=== PATIENT | female | born 1930 | race Caucasian/White ===

== ENCOUNTER 2017-04-14 20:44 | Inpatient (IN) ==
[2017-04-14] MEDS ORDERED: Ondansetron 4 MG/2 ML VIAL IVP ONE (21:32)
[2017-04-14] MEDS ORDERED: 0.9 % Sodium Chloride 500 ML IVC ONE (21:32)
--- NOTE | 2017-04-14 21:48 | Emergency Department Note ---
START Narrative - START START: I examined this patient and my medical decision-making was reviewed with the INSTRUCTOR PILOT/PA/Advanced Practice Nurse/Resident Physician. I agree with the documented findings, disposition and treatment plan as described except to the extent set forth below. ED attending note: Patient seen with emergency medicine resident Dr PICKETT. We independently evaluated the patient. We independently had [id number] contact with the patient. Please see a copy of his note for details of the history and physical, evaluation, management and disposition of this emergency Department patient. Briefly: 86-year-old female brought in by family members for abdominal distention no bowel movement for 4 days and "constipation". Patient and her family stated that the worked up yesterday and [facility] in [place] a while had a CAT scan and blood work had a rectal examination and an enema but she states she left there is still with pain and symptoms. She is here for further evaluation. Patient has slightly distended abdomen that is firm with bowel sounds. We got a release for her signed and located at the information from yesterday's ED workup. Patient is getting IV fluids and rehydration with saline singeing last ate she started 4 days ago. Digital rectal examination showed firm stool in the ampulla. We will commence rectal manual digital disimpaction. Disposition pending.
[2017-04-14 22:07] LABS: Basophils % 0.1 %; Eosinophils % 0.4 %; Hematocrit 37.6 % (35.3-44.9); Hemoglobin 12.7 g/dL (11.5-15.4); Immature Granulocytes % 0.3 % (0-4); Lymphocytes # 0.7 K/mcL (0.6-4.6); Lymphocytes % 9.2 %; Mean Corpuscular HGB Conc 33.8 g/dL (31.6-35.5); Mean Corpuscular Hemoglobin 29.4 pg (28.0-33.3); Mean Platelet Volume 10.2 fL (9.4-12.4); Monocytes # 0.7 K/mcL (0.0-1.3); Monocytes % 8.3 %; Neutrophils # 6.5 K/mcL (1.6-8.9); Platelet Count 198 K/mcL (140-400); Red Blood Count 4.32 M/mcL (3.82-4.97); Red Cell Distribution Width 13.2 % (11.5-14.5); Segmented Neutrophils % 81.7 %
[2017-04-14 22:20] LABS: BUN/Creatinine Ratio 11 (6-26); Blood Urea Nitrogen 8 mg/dL (7-20); Calcium 8.9 mg/dL (8.6-10.8); Carbon Dioxide 24 mEq/L (19-29); Chloride 97 mEq/L (98-109); Glucose 122 mg/dL (70-99); Osmolality,Calculated 272 (280-300); Potassium 3.2 mEq/L (3.5-4.5); Sodium 131 mEq/L (136-145); eGFR For African Americans > 60 (> 60); eGFR For Non-African Americans > 60 (> 60)
[2017-04-14] MEDS ORDERED: Milk and Molasses Enema 200 ML RC ONE (22:21)
[2017-04-14] MEDS ORDERED: Potassium Chloride Elixir 20 MEQ/15 ML UDC PO ONE (22:30)
--- NOTE | 2017-04-14 22:41 | Emergency Department Note ---
Disposition Clinical Impression: Ileus, Hyponatremia, Hypokalemia Constipation Qualifiers: Constipation type: unspecified constipation type Qualified Code(s): K59.00 - Constipation, unspecified Disposition: Admitted As Inpatient Condition: Fair Referrals: Johny Morrison DO [Primary Care Provider] - Forms: Work/School Release, ED Satisfaction Letter Time of Disposition: 22:51 Abdominal Pain HPI - General Chief Complaint: ED Abdominal Pain Stated Complaint: constipation, both hips and flank pn can't urinat Time Seen by Provider: 04/14/17 21:06 Source: patient Mode of arrival: ambulatory Limitations: no limitations Nursing Notes Reviewed: Yes Vital Signs Reviewed: Yes - History of Present Illness HPI Narrative: Patient 86-year-old female with past medical history of hypertension. She presents today due to constipation for the past 4 days. She was seen at [facility] yesterday and had (per patient) a CT scan that showed constipation and patient states that she was sent home with MiraLAX. She also said that she had an enema but did not work. She presents today due to continued constipation. She says that she had a digital rectal exam but did not have a digital disimpaction. Denies any nausea or vomiting, fevers, chest pain, shortness of breath. She does admit to generalized abdominal pain, mainly suprapubic. She also says that she has not urinated since 10 AM. She also admits to burning with urination. Pain Scale: 10 - Related Data Home Medications Medication Instructions Recorded Confirmed Cholecalciferol (Vitamin D3) 4,000 unit PO DAILY 02/01/16 02/01/16 [Vitamin D3] Diclofenac Potassium 50 mg PO TID 02/01/16 02/01/16 Etodolac 500 mg PO BID 02/01/16 02/01/16 Levothyroxine [Synthroid] 50 mcg PO DAILY 02/01/16 02/01/16 Lisinopril 30 mg PO DAILY 02/01/16 02/01/16 hydroCHLOROthiazide 50 mg PO DAILY 02/01/16 02/01/16 [Hydrochlorothiazide] Previous Rx's Medication Instructions Recorded cloNIDine HCl [CloNIDine HCl] 0.1 mg PO DAILY #30 tablet 02/01/16 Allergies Allergy/AdvReac Type Severity Reaction Status Date / Time No Known Allergies Allergy Verified 04/14/17 21:04 All systems ED: reviewed and negative except as stated. Constitutional: Denies: fever Cardiovascular: Denies: chest pain Respiratory: Denies: dyspnea Gastrointestinal: Reports: abdominal pain, constipation. Denies: nausea, vomiting, diarrhea Abdominal Pain PMH - Past Medical History Medical history: Reports: hypertension Female Surgical History: Reports: no surgical history Psychiatric history: Reports: no psych history - Social History Smoking status: Never smoker Alcohol use: Reports: none Drug use: Reports: none Physical Exam - General Limitations: no limitations General appearance: alert, in no apparent distress - Eye Eye exam: Present: normal appearance, PERRL, EOMI - ENT ENT exam: normal exam, normal oropharynx, mucous membranes moist - Neck Neck exam: Present: normal inspection, full ROM, trachea midline - Chest Chest inspection: Present: normal inspection, symmetric chest wall rise - Respiratory Respiratory exam: Present: normal lung sounds bilaterally - Cardiovascular Cardiovascular exam: Present: regular rate, normal rhythm, normal heart sounds - Abdominal Exam Abdominal exam: Present: soft, tenderness (mild tenderness in suprapubic region) . Absent: distention, guarding, rebound, rigidity - Rectal Exam Rectal exam: Present: other (No stool appreciated in rectal vault). Absent: bloody stool, mass - Extremities Exam Extremities exam: Present: normal inspection, full ROM. Absent: tenderness, pedal edema - Neurological Exam Neurological exam: Present: alert, oriented X3 - Psychiatric Psychiatric exam: Present: normal affect, normal mood Course Course Narrative: Patient was hypertensive on presentation. We will recheck. The rest of the vitals within normal limits. Physical exam showed mild suprapubic tenderness. Otherwise, the rest of the physical exam was benign. Rectal exam showed no stool in the rectal vault. X-ray of the abdomen showed mild ileus bowel gas pattern. Basic labs also showed mild hyponatremia and mild hypokalemia. Will replace potassium with 40 mEq of potassium, will start fluids for hyponatremia. Urinalysis has been ordered the patient has been unable to give urine sample at this time. Plan is to check for UTI due to complaint of burning with urination. Hospitalist was called due to fear of developing obstruction seen on x-ray. She will be admitted for further observation at least overnight. Patient was agreeable with this plan. KUB X-Ray 04/14/17 21:31 IMPRESSION: Mild ileus bowel gas pattern. D/ / Vince Taylor MD / Vince Taylor MD Interpreting Provider: Vince Taylor MD Vital Signs Temperature 98.3 F 04/14/17 21:02 Pulse Rate 79 04/14/17 21:02 Respiratory Rate 16 04/14/17 21:02 Blood Pressure 207/101 04/14/17 21:02 O2 Sat by Pulse Oximetry 96 04/14/17 21:02 Temperature 98.3 F 04/14/17 21:02 Pulse Rate 79 04/14/17 21:02 Respiratory Rate 16 04/14/17 21:02 Blood Pressure 207/101 04/14/17 21:02 O2 Sat by Pulse Oximetry 96 04/14/17 21:02 Oxygen Delivery Oxygen Delivery Room Air Abdominal Pain - MDM Narrative Medical decision making narrative: Patient was hypertensive on presentation. We will recheck. The rest of the vitals within normal limits. Physical exam showed mild suprapubic tenderness. Otherwise, the rest of the physical exam was benign. Rectal exam showed no stool in the rectal vault. X-ray of the abdomen showed mild ileus bowel gas pattern. Basic labs also showed mild hyponatremia and mild hypokalemia. Will replace potassium with 40 mEq of potassium, will start fluids for hyponatremia. Urinalysis has been ordered the patient has been unable to give urine sample at this time. Plan is to check for UTI due to complaint of burning with urination. Hospitalist was called due to fear of developing obstruction seen on x-ray. She will be admitted for further observation at least overnight. Patient was agreeable with this plan. - Medical Records Medical records reviewed: Yes I reviewed the patient's medical records. - Lab Data Lab results reviewed: Yes I reviewed the patient's lab results. Result diagrams: 04/14/17 21:59 04/14/17 21:59 Lab Results 04/14/17 04/14/17 Range/Units 21:59 21:59 WBC 7.9 (4.3-11.1) K/mcL RBC 4.32 (3.82-4.97) M/mcL Hgb 12.7 (11.5-15.4) g/dL Hct 37.6 (35.3-44.9) % MCV 87.0 (83.0-100.0) fL MCH 29.4 (28.0-33.3) pg MCHC 33.8 (31.6-35.5) g/dL RDW 13.2 (11.5-14.5) % Plt Count 198 (140-400) K/mcL MPV 10.2 (9.4-12.4) fL Immature Gran % 0.3 (0-4) % Seg Neutrophils % 81.7 % Lymphocytes % 9.2 % Monocytes % 8.3 % Eosinophils % 0.4 % Basophils % 0.1 % Neutrophils # 6.5 (1.6-8.9) K/mcL Lymphocytes # 0.7 (0.6-4.6) K/mcL Monocytes # 0.7 (0.0-1.3) K/mcL Eosinophils # 0.0 (0.0-0.6) K/mcL Basophils # 0.0 (0.0-0.2) K/mcL Sodium 131 L (136-145) mEq/L Potassium 3.2 L (3.5-4.5) mEq/L Chloride 97 L (98-109) mEq/L Carbon Dioxide 24 (19-29) mEq/L BUN 8 (7-20) mg/dL Creatinine 0.73 (0.57-1.11) mg/dL Est GFR ( Amer) > 60 (> 60) Est GFR (Non-Af Amer) > 60 (> 60) BUN/Creatinine Ratio 11 (6-26) Glucose 122 H (70-99) mg/dL Calculated Osmolality 272 L (280-300) Calcium 8.9 (8.6-10.8) mg/dL - Radiology Data Radiology results reviewed: Yes I reviewed the patient's radiology results. KUB X-Ray 04/14/17 21:31 IMPRESSION: Mild ileus bowel gas pattern. D/ / Vince Taylor MD / Vince Taylor MD Interpreting Provider: Vince Taylor MD S.B.A.R. - S.B.A.R. Situation: Demographics, MOA Background: Presenting Complaint, Relevant PMH, Meds, & Allergies Assessment: Vital Signs, Course and respsone to treatment, Exam Concerns, Patient/Family Expectation, Pertinant Lab Results, Outstanding Labs Recommendation: Barrier(s) to disposition, Recommendation based on pending studies, treatments, or consults S.[email or web address] [email or web address] Report Given to: Dr. Omi Monae Repor Time: 22:50
[2017-04-14] MEDS ORDERED: Acetaminophen 325 MG TABLET PO PRN (23:05)
[2017-04-14] MEDS ORDERED: Naloxone 0.4 MG/ML INJ IVP PRN (23:05)
[2017-04-14] MEDS ORDERED: 0.9 % Sodium Chloride w KCl 20 MEQ/1,000 ML MLS IVC SCH (23:15)
[2017-04-14 23:16] LABS: Bilirubin,Urine Negative (Negative); Blood,Urine Negative (Negative); Color,Urine Yellow (Yellow); Glucose,Urine (UA) Normal (Normal); Ketones,Urine Trace mg/dL (Negative); Leukocyte Esterase,Urine Moderate (Negative); Nitrite,Urine Negative (Negative); Protein,Urine Negative (Neg-Trace); Specific Gravity,Urine 1.014 (1.010-1.025); Urobilinogen,Urine Normal (Normal)
--- NOTE | 2017-04-14 23:16 | Internal Med History&Physical ---
Date of Encounter: 04/14/17 Time of Encounter: 23:11 Assessment and Plan (1) Ileus Current visit: Yes Status: Acute NPO for now overnight. Repeat AXR in the morning. Trial of senna BID. Correct hyponatremia, hypoKalemia. IVF as below for now. If improve in a.m consider progression of diet (2) Constipation Current visit: Yes Status: Acute monitor for now. AXR in the a.m. Likely 2/2 to above Qualifiers: Constipation type: unspecified constipation type Qualified Code(s): K59.00 - Constipation, unspecified (3) Hyponatremia Current visit: Yes Status: Acute IVF 0.9 NS, monitor NA (4) Hypokalemia Current visit: Yes Status: Acute IVF with K supplementation. Monitor K (5) Hypertension Current visit: Yes Status: Acute continue home med Qualifiers: Qualified Code(s): I10 - Essential (primary) hypertension (6) Hypothyroid Current visit: Yes Status: Acute check TSH, FT4. continue med Qualifiers: Qualified Code(s): E03.9 - Hypothyroidism, unspecified (7) Hypothyroid Current visit: Yes Status: Acute Qualifiers: Qualified Code(s): E03.9 - Hypothyroidism, unspecified Internal Medicine - H&P: HPI Chief complaint: No BM for 4 days History of present illness: Ms. Terry is a 86 year old female who presents with 4 day hx of no BM. She was seen at [facility] ED yesterday with CT scan suggesting impaction ? and received an enema prior to being sent home. She presents to [facility] today due to same complaint today. She describes as feeling full. HANANE in the ED did not reveal stool in the anal vault. However, AXR noted mild ileus but w/o overt findings of impaction. Lab demonstrated moderate hyponatremia and hyperKalemia. Denies any recent surgery or narcotic use. ROS also noted some urinary symptoms with dysuria, lowe abd discomfort and frequency relative to her normal standard. Some suprapubic discomfort. Past Med Surg Social Fam HX - Past Medical History Medical history: hypertension Psychiatric history: no psych history - Past Surgical History Surgical History: no surgical history - Social History Smoking Status: Never smoker Smokeless Tobacco Status: No Alcohol use: none Drug use: none Internal Medicine - H&P: Meds Cholecalciferol (Vitamin D3) [Vitamin D3] 4,000 unit PO DAILY 02/01/16 [History] Diclofenac Potassium 50 mg PO TID 02/01/16 [History] Etodolac 500 mg PO BID 02/01/16 [History] Levothyroxine [Synthroid] 50 mcg PO DAILY 02/01/16 [History] Lisinopril 30 mg PO DAILY 02/01/16 [History] cloNIDine HCl [CloNIDine HCl] 0.1 mg PO DAILY #30 tablet 02/01/16 [Rx] hydroCHLOROthiazide [Hydrochlorothiazide] 50 mg PO DAILY 02/01/16 [History] Allergies No Known Allergies Allergy (Verified 04/14/17 21:04) All Systems PM: A 10-system review of systems was performed and is negative for pertinent findings except as documented above in the HPI. Review of systems: ROS 14 point review of systems reviewed as best as possible given presentation. Pertinent positive or negative as per HPI or otherwise reviewed as negative - Constitutional Vitals: Temp Pulse Resp BP Pulse Ox 98.3 F 79 16 207/101 96 04/14/17 21:02 04/14/17 21:02 04/14/17 21:02 04/14/17 21:02 04/14/17 21:02 Exam: General - AAO x 3 Psych - Appropriate affect/speech. No agitation Eyes - VINOD. Eye lids intact. No scleral icterus ENT - Oral mucosa pink, dentition intact. External ear clear/dry/intact. No thyromegaly Lymphatics - No cervical/inguinal lympadenopathy Neuro - No gross peripheral or central neuro deficits with intact CN 2-12 exam Heart - Sinus. RRR. S1 and S2 present. No added HS/murmurs appreciated. No elevated JVD appreciated. No calf swellings/erythema Lung - Adequate air entry b/l, No crackes/wheezes appreciated GI - Soft, non-tender. No hepatosplenomegaly/ascities. BS+ - No CVA/suprapubic tenderness or palpable bladder distension Skin - Intact. No rash/petechiae/ecchymosis. Warm extremities MSK - Joints with normal ROM. No joint swellings Internal Med - H&P Results - Labs CBC & Chem 7: 04/14/17 21:59 04/14/17 21:59 Labs: Short CBC 04/14/17 Range/Units 21:59 WBC 7.9 (4.3-11.1) K/mcL Hgb 12.7 (11.5-15.4) g/dL Hct 37.6 (35.3-44.9) % Plt Count 198 (140-400) K/mcL Neutrophils # 6.5 (1.6-8.9) K/mcL BMP 04/14/17 21:59 Sodium 131 L Potassium 3.2 L Chloride 97 L Carbon Dioxide 24 BUN 8 Creatinine 0.73 Glucose 122 H Calcium 8.9 - Impressions ITS Impressions KUB X-Ray 04/14/17 21:31 IMPRESSION: Mild ileus bowel gas pattern. D/ / Vince Taylor MD / Vince Taylor MD Interpreting Provider: Vince Taylor MD
[2017-04-14 23:19] LABS: Clarity,Urine Slightly Hazy (Clear); Hyaline Casts,Urine None Seen per lpf (None-Few); RBC,Urine 0-3 per hpf (0-3)
[2017-04-14 23:29] LABS: Squamous Epithelial Cell,Urine Few per lpf (None-Few)
[2017-04-14 23:30] LABS: Bacteria,Urine Moderate per hpf (None-Few)
[2017-04-15] MEDS: *HR* Enoxaparin 30 MG/0.3 ML SYRINGE SQ SCH (06:03)
[2017-04-15 06:10] LABS: Basophils % 0.3 %; Eosinophils % 0.4 %; Hematocrit 40.6 % (35.3-44.9); Hemoglobin 13.4 g/dL (11.5-15.4); Immature Granulocytes % 0.4 % (0-4); Lymphocytes # 0.7 K/mcL (0.6-4.6); Lymphocytes % 10.9 %; Mean Corpuscular Hemoglobin 29.1 pg (28.0-33.3); Mean Corpuscular Volume 88.1 fL (83.0-100.0); Mean Platelet Volume 10.3 fL (9.4-12.4); Monocytes # 0.6 K/mcL (0.0-1.3); Monocytes % 9.1 %; Neutrophils # 5.3 K/mcL (1.6-8.9); Platelet Count 228 K/mcL (140-400); Red Blood Count 4.61 M/mcL (3.82-4.97); Red Cell Distribution Width 13.2 % (11.5-14.5); Segmented Neutrophils % 78.9 %
[2017-04-15 06:20] LABS: BUN/Creatinine Ratio 7 (6-26); Blood Urea Nitrogen 5 mg/dL (7-20); Calcium 8.9 mg/dL (8.6-10.8); Carbon Dioxide 26 mEq/L (19-29); Chloride 101 mEq/L (98-109); Glucose 131 mg/dL (70-99); Osmolality,Calculated 275 (280-300); Potassium 3.9 mEq/L (3.5-4.5); Sodium 133 mEq/L (136-145); eGFR For African Americans > 60 (> 60); eGFR For Non-African Americans > 60 (> 60)
[2017-04-15] MEDS ORDERED: Pantoprazole 40 MG VIAL IVP SCH (06:30)
[2017-04-15] MEDS ORDERED: cloNIDine HCl 0.1 MG TABLET PO SCH (09:00)
--- NOTE | 2017-04-15 09:32 | Internal Med Progress Note ---
Date of Encounter: 04/15/17 Time of Encounter: 09:00 - Assessment and plan (1) Ileus Current Visit: Yes Status: Acute Assessment and plan: Patient presented with 4-5 day history of constipation. Abdominal x-ray done in the emergency room showed mild ileus. Patient is currently noted to be having bowel movements, responding to laxatives. Start clear liquid diet. Continue IV hydration and supportive care. Monitor closely. (2) Constipation Current Visit: Yes Status: Acute Assessment and plan: Improving. Continue Colace, senna, will use MiraLAX as needed. Resume diet and advance as tolerated. Qualifiers: Constipation type: slow transit constipation Qualified Code(s): K59.01 - Slow transit constipation (3) Hypertension Current Visit: Yes Status: Chronic Assessment and plan: Blood pressure noted to be fairly well controlled. Resume home medications. Qualifiers: Hypertension type: essential hypertension Qualified Code(s): I10 - Essential (primary) hypertension (4) Hypokalemia Current Visit: Yes Status: Resolved Assessment and plan: Improved with IV potassium chloride supplementation. (5) Hyponatremia Current Visit: Yes Status: Acute Assessment and plan: Likely hypovolemic, related to GI losses. Improving with IV hydration. Continue to monitor. (6) Hypothyroid Current Visit: Yes Status: Chronic Assessment and plan: Resume levothyroxine. Qualifiers: Hypothyroidism type: unspecified Qualified Code(s): E03.9 - Hypothyroidism , unspecified - Subjective Interval history: Hard of hearing but able to answer appropriately. Reports no abdominal pain, nausea or vomiting; had bowel movements after admission, with laxatives. - Constitutional Vitals: Temp Pulse Resp BP Pulse Ox 98.5 F 96 16 150/59 98 04/15/17 06:59 04/15/17 06:59 04/15/17 06:59 04/15/17 06:59 04/15/17 06:59 General appearance: Present: A&O X 3, answers questions appropriately - Respiratory Respiratory exam: Present: CTAB. Absent: accessory muscle use, rales, rhonchi, wheezes - Cardiovascular Cardiovascular exam: Present: RRR, +S1, +S2, systolic murmur, tachycardia. Absent: diastolic murmur, gallop, rubs - GI/Abdominal GI/Abdominal exam: Present: hyperactive bowel sounds, soft, no peritoneal signs. Absent: distended, tenderness - Extremities Exam Extremities exam: Present: full ROM, warm, radial pulses palpable and symetrical. Absent: calf tenderness, cyanotic, pedal edema - Neurological Exam Neurological exam: Present: CN II-XII intact, oriented X3, no focal deficits. Absent: pronater drift, facial droop, speech deficit Internal Medicine: Result - Labs CBC & Chem 7: 04/15/17 05:55 04/15/17 05:55 Labs: Short CBC 04/15/17 Range/Units 05:55 WBC 6.7 (4.3-11.1) K/mcL Hgb 13.4 (11.5-15.4) g/dL Hct 40.6 (35.3-44.9) % Plt Count 228 (140-400) K/mcL Neutrophils # 5.3 (1.6-8.9) K/mcL BMP 04/15/17 05:55 Sodium 133 L Potassium 3.9 Chloride 101 Carbon Dioxide 26 BUN 5 L Creatinine 0.67 Glucose 131 H Calcium 8.9 Consult Discharge Plan - Plan Referrals: Johny Morrison DO [Primary Care Provider] -
[2017-04-15] MEDS: hydroCHLOROthiazide 25 MG TABLET PO SCH (10:29)
[2017-04-15] MEDS: Sennosides 8.6 MG TABLET PO SCH ×2 (10:30→20:10)
[2017-04-15] MEDS: Lisinopril 20 MG TABLET PO SCH (10:30)
[2017-04-15] MEDS: Cholecalciferol (D-3) 1,000 UNIT TABLET PO SCH (10:30)
[2017-04-15] MEDS: cloNIDine HCl 0.1 MG TABLET PO SCH (20:10)
[2017-04-15] MEDS ORDERED: Gabapentin 300 MG CAPSULE PO SCH (21:00)
[2017-04-16 04:50] LABS: BUN/Creatinine Ratio 8 (6-26); Blood Urea Nitrogen 6 mg/dL (7-20); Calcium 8.7 mg/dL (8.6-10.8); Carbon Dioxide 27 mEq/L (19-29); Chloride 101 mEq/L (98-109); Glucose 84 mg/dL (70-99); Osmolality,Calculated 273 (280-300); Potassium 3.9 mEq/L (3.5-4.5); Sodium 133 mEq/L (136-145); eGFR For African Americans > 60 (> 60); eGFR For Non-African Americans > 60 (> 60)
[2017-04-16] MEDS: *HR* Enoxaparin 30 MG/0.3 ML SYRINGE SQ SCH (05:29)
[2017-04-16] MEDS: Lisinopril 20 MG TABLET PO SCH (08:58)
[2017-04-16] MEDS: hydroCHLOROthiazide 25 MG TABLET PO SCH (08:58)
[2017-04-16] MEDS: cloNIDine HCl 0.1 MG TABLET PO SCH (08:59)
[2017-04-16] MEDS: Sennosides 8.6 MG TABLET PO SCH (08:59)
[2017-04-16] MEDS: Cholecalciferol (D-3) 1,000 UNIT TABLET PO SCH (08:59)
--- NOTE | 2017-04-16 10:30 | Discharge Summary ---
Date of Encounter: 04/16/17 Time of Encounter: 08:00 - Discharge Diagnosis (1) Ileus Priority: Primary Status: Resolved Comments: Initial abdominal x-ray revealed mild ileus. Patient is now tolerating soft diet well. She has had bowel movements and is responding to laxatives. (2) Constipation Priority: Primary Status: Resolved Comments: Now improved. Continue Colace and MiraLAX when necessary. Resume usual diet. Qualifiers: Constipation type: slow transit constipation Qualified Code(s): K59.01 - Slow transit constipation (3) Hypokalemia Priority: Primary Status: Resolved Comments: Potassium replaced (4) Hypertension Priority: Secondary Status: Chronic Comments: Controlled, continue home meds Qualifiers: Hypertension type: essential hypertension Qualified Code(s): I10 - Essential (primary) hypertension (5) Hypothyroid Priority: Secondary Status: Chronic Comments: Resume levothyroxine Qualifiers: Hypothyroidism type: unspecified Qualified Code(s): E03.9 - Hypothyroidism , unspecified - Discharge Medications Prescriptions: Docusate [Colace] 100 mg PO BID #20 Omeprazole [PriLOSEC] 20 mg PO DAILY@0630 #30 Polyethylene Glycol 3350 [MiraLAX] 17 gm PO DAILY PRN #7 PRN Reason: Constipation Home Medications: Cholecalciferol (Vitamin D3) [Vitamin D3] 4,000 unit PO DAILY 02/01/16 [History] Etodolac 500 mg PO BID 02/01/16 [History] Levothyroxine [Synthroid] 50 mcg PO DAILY 02/01/16 [History] Lisinopril 30 mg PO DAILY 02/01/16 [History] cloNIDine HCl [CloNIDine HCl] 0.1 mg PO DAILY #30 tablet 02/01/16 [Rx] hydroCHLOROthiazide [Hydrochlorothiazide] 50 mg PO DAILY 02/01/16 [History] Gabapentin [Neurontin] 600 mg PO HS 04/15/17 [History] Docusate [Colace] 100 mg PO BID #20 04/16/17 [Rx] Omeprazole [PriLOSEC] 20 mg PO DAILY@0630 #30 04/16/17 [Rx] Polyethylene Glycol 3350 [MiraLAX] 17 gm PO DAILY PRN #7 04/16/17 [Rx] Allergies/Adverse Reactions: Allergies No Known Allergies Allergy (Verified 04/14/17 21:04) Date of admission: 04/14/17 23:14 Primary care physician: Johny Morrison, Consults: 04/15/17 08:40 Consult to Physical Therapy [CONS] Routine Comment: Evaluate, develop and implement POC Reason for Consult: discharge planning OT [Consult to Occupational Therapy] [CONS] Routine Comment: Evaluate, develop and implement POC Reason for Consult: discharge planning Anticipated date of discharge: 04/16/17 - Patient Status Disposition: Home Health Service Condition: Fair Functional capacity at discharge: uses cane/walker Overall status at discharge: patient is progressing back to baseline - Discharge Instructions Follow Up With: Johny Morrison, [Primary Care Provider] - 05/06/17 9:00 am (This is the first appt. available. The office will check with Dr. Morrison and see if the patient needs to be seen sooner. Thank you) - Diet and Activity Activity: increase activity as tolerated, resume usual activities as tolerated Diet: advance to your usual diet Hospital course: Ms. Terry is a 86 year old female with past medical history of hypertension and hypothyroidism. She presented to the ED initially with complaints of constipation. Initial CT suggested possible impaction and she was given an enema. Patient returned for a feeling of fullness and constipation. Fecal Hemoccult is negative. Abdominal x-ray noted mild ileus but no findings of impaction. She also had some hyponatremia and hyperkalemia. She had some mild discomfort. Patient was then started on a clear liquid diet. She did have a bowel movement. She was responding to laxatives. Diet has now been advanced to soft diet. Patient states her abdominal bloating and fullness have now improved. She is having bowel movements. She is responding well to laxatives. Initial hypokalemia has now resolved after potassium replacement. She has no other acute complaints at present. No acute events during stay in the hospital. Patient has been explained about her condition and plan of care. She understood and agreed. No family members at the time of discharge. She is being discharged in a stable condition. - Time Spent with Patient Total time spent providing and/or coordinating discharge services: Less than 30 minutes - Constitutional Vitals: Temp Pulse Resp BP Pulse Ox 97.6 F 69 18 121/62 95 04/16/17 08:00 04/16/17 08:00 04/16/17 08:00 04/16/17 08:00 04/16/17 08:00 General appearance: Present: A&O X 3, pleasant, no acute distress, answers questions appropriately - Head Head exam: Present: atraumatic - Eye Eye exam: Present: EOMI - ENT ENT exam: Present: mucous membranes moist - Respiratory Respiratory exam: Present: CTAB. Absent: rales, rhonchi, wheezes, tachypnea - Cardiovascular Cardiovascular exam: Present: RRR, +S1, +S2 - GI/Abdominal GI/Abdominal exam: Present: soft, no peritoneal signs. Absent: distended, firm , guarding, rigid, tenderness - Extremities Exam Extremities exam: Present: radial pulses palpable and symetrical. Absent: cyanotic, pedal edema, tenderness - Neurological Exam Neurological exam: Present: alert, oriented X3, no focal deficits
--- NOTE | 2017-04-16 12:15 | Physician Discharge Referral ---
Home Health/Hosp Referral Info Transfer to: Home Health Provider in Charge Post Discharge: PCP - Diagnosis (1) Ileus Priority: Primary Status: Resolved (2) Constipation Priority: Primary Status: Resolved (3) Hypokalemia Priority: Primary Status: Resolved (4) Hypertension Priority: Secondary Status: Chronic (5) Hypothyroid Priority: Secondary Status: Chronic - Respiratory Orders Smoking Cessation: Smoking cessation has been advised. For more information, call the [place] Tobacco Quit Line at 6-563-VDGZ-NOW. - Diet/Nutrition Diet/Nutrition Orders: Regular, Mechanical Soft - Activity Activity Orders: Up ad marcos, Ambulate, Walker - Services Needed Following services are medically necessary services: Home Health Aide, Physical Therapy - Transfer Medications Prescriptions: Docusate [Colace] 100 mg PO BID #20 Omeprazole [PriLOSEC] 20 mg PO DAILY@0630 #30 Polyethylene Glycol 3350 [MiraLAX] 17 gm PO DAILY PRN #7 PRN Reason: Constipation Home Medications: Cholecalciferol (Vitamin D3) [Vitamin D3] 4,000 unit PO DAILY 02/01/16 [History] Etodolac 500 mg PO BID 02/01/16 [History] Levothyroxine [Synthroid] 50 mcg PO DAILY 02/01/16 [History] Lisinopril 30 mg PO DAILY 02/01/16 [History] cloNIDine HCl [CloNIDine HCl] 0.1 mg PO DAILY #30 tablet 02/01/16 [Rx] hydroCHLOROthiazide [Hydrochlorothiazide] 50 mg PO DAILY 02/01/16 [History] Gabapentin [Neurontin] 600 mg PO HS 04/15/17 [History] Docusate [Colace] 100 mg PO BID #20 04/16/17 [Rx] Omeprazole [PriLOSEC] 20 mg PO DAILY@0630 #30 04/16/17 [Rx] Polyethylene Glycol 3350 [MiraLAX] 17 gm PO DAILY PRN #7 04/16/17 [Rx] Allergies/Adverse Reactions: Allergies No Known Allergies Allergy (Verified 04/14/17 21:04) Certification: Further, I certify that my clinical findings support that this patient is homebound (i.e. absences from home require considerable and taxing effort and are for medical reasons or sikhism services or infrequently or short duration when for other reasons) because: Homebound Reason: Patient requires assistance of a person or device to safely leave home Attestation: My signature below is to certify that this patient is under my care and that I, or nurse practitioner, or a physician's wellness assistant working with me, has a face-to -face encounter with this patient.
[2017-04-16 15:25] VITALS: BP 147/84
== END 2017-04-16 15:40 | disposition home or self-care (01) | DRG 389 ==
LOC: 3ANU 20:44 → EMEROO 20:44 → 3ANU 23:56
PROVIDERS: ADMIT Internal Medicine Hematology & Oncology; ATTEND Internal Medicine